=== PATIENT | male | born 1965 | race Caucasian/White ===

== ENCOUNTER 2017-10-10 02:02 | Emergency (ER) | payer OTHER ==
[~2017-10-10] VITALS: Ht 198.1 cm; Wt 90.1 kg
[2017-10-10 03:24] VITALS: BP 142/83
== END 2017-10-10 03:25 | disposition home or self-care (01) ==
LOC: ER 02:03
DX: M54.2 Cervicalgia (principal); R41.82 Altered mental status, unspecified
CPT/HCPCS: 36415; 70450; 72125; 80320; 99285; L0172